=== PATIENT | male | born 1955 | race Caucasian/White ===

== ENCOUNTER 2017-06-20 07:46 | Day surgery (SDC) | payer OTHER ==
[2017-06-20] MEDS ORDERED: PROPOFOL 40 ML (09:01)
[2017-06-20] MEDS ORDERED: LIDOCAINE 2% (SDV) 5 ML INJ (09:01)
== END 2017-06-20 14:09 | disposition home or self-care (01) ==
LOC: GIL 07:46
DX: Z12.11 Encounter for screening for malignant neoplasm of colon (principal); K57.90 Diverticulosis of intestine, part unspecified, without perforation or abscess without bleeding; K64.8 Other hemorrhoids; K63.5 Polyp of colon; E11.9 Type 2 diabetes mellitus without complications; E78.5 Hyperlipidemia, unspecified
CPT/HCPCS: 45380; 82962; 88305